=== PATIENT | male | born 1960 | race Caucasian/White ===

== ENCOUNTER 2017-03-15 11:17 | Emergency (ER) | payer OTHER ==
[~2017-03-15 11:17] MED LIST: T PO
== END 2017-03-15 13:46 | disposition home or self-care (01) ==
LOC: ER 11:17
DX: M25.551 Pain in right hip (principal); F17.200 Nicotine dependence, unspecified, uncomplicated; Z88.8 Allergy status to other drugs, medicaments and biological substances
CPT/HCPCS: 73502-RT; 93971; 99284